=== PATIENT | male | born 1965 ===

== ENCOUNTER → 2018-07-23 | Outpatient (REF) ==
[2018-07-23 19:44] LABS: THYROID STIMULATING HORMONE 2.18 uIU/mL (0.465-4.680)
[2018-07-23 20:37] LABS: PSA-TOTAL 1.11 ng/mL (0-4)
== END ==
LOC: ZLAB.WCH 18:49
PROVIDERS: Physician Assistant
DX: Z01.89 Encounter for other specified special examinations (principal)
CPT/HCPCS: G0103